=== PATIENT | female | born 1990 | race Two or more races ===

== ENCOUNTER → 2018-09-05 | Day surgery (SDC) | payer MEDICAID ==
[~2018-09-05] VITALS: Ht 165.1 cm; Wt 57.2 kg
[~2018-09-05] MED LIST: DEXAMETHASONE SOD PHOS 10MG/1ML VIAL INJ ONE; GLYCOPYRROLATE 0.2 MG/ML 1ML VIAL ONE; HYDR-4683 PO; HYDROmorphone HCL 2 MG/ML VL IV PRN; KETOROLAC TROMETH 30 MG/ML 1ML VIAL IV ONE; KETOROLAC TROMETH 30 MG/ML 1ML VIAL ONE; LABETALOL HCL 5 MG/ML 4ML SYRINGE IV PRN; LACTATED RINGER'S 1,000 ML IV SCH; MEPERIDINE HCL (50 MG/ML) 1 ML VIAL ONE; MIDAZOLAM HCL 1MG/1ML-2 ML VIAL IV PRN; MIDAZOLAM HCL 1MG/1ML-2 ML VIAL ONE; MORPHINE SULFATE 4 MG/ML SYR/VIAL IV ONE; MORPHINE SULFATE 4 MG/ML SYR/VIAL IV PRN; NAP500T PO; NEOSTIGMINE 1 MG/ML INJ (10mg/10ML VIAL) ONE; ONDANSETRON HCL 4 MG/2 ML VIAL IV ONE; ONDANSETRON HCL 4 MG/2 ML VIAL IV PRN; ONDANSETRON HCL 4 MG/2 ML VIAL ONE; PHENYLEPHRINE HCL 10 MG/ML VL ONE; PROPOFOL 10 MG/ML 20 ML IV ONE; ROCURONIUM 10MG/ML 10ML VIAL IV ONE; ceFAZolin 1GM/50ML 50 ML IV ONE; ePHEDrine SULFATE 50 MG/ML AMP IV PRN; fentaNYL CITRATE 100 MCG/2 ML VL ONE
[2018-09-05 11:59] VITALS: BP 113/113
== END | disposition home or self-care (01) ==
LOC: SUR 07:00
PROVIDERS: ATTEND Specialist
DX: N83.292 Other ovarian cyst, left side (principal); L91.8 Other hypertrophic disorders of the skin; N83.9 Noninflammatory disorder of ovary, fallopian tube and broad ligament, unspecified; Z79.899 Other long term (current) drug therapy; Z98.890 Other specified postprocedural states
CPT/HCPCS: 11200; 58661; J1170; J2175; J2370; J3010; 86850; 86900; 86901; 87070; 87075; 87205; J0690; J1100; J1885; J2250; J2405; J2704

== ENCOUNTER 2018-09-08 09:58 | Inpatient (IN) | payer MEDICAID ==
[~2018-09-08] VITALS: Ht 165.1 cm; Wt 57.2 kg
[~2018-09-08 09:58] MED LIST changes: -DEXAMETHASONE SOD PHOS 10MG/1ML VIAL INJ ONE; -GLYCOPYRROLATE 0.2 MG/ML 1ML VIAL ONE; -HYDROmorphone HCL 2 MG/ML VL IV PRN; -KETOROLAC TROMETH 30 MG/ML 1ML VIAL IV ONE; -KETOROLAC TROMETH 30 MG/ML 1ML VIAL ONE; -LABETALOL HCL 5 MG/ML 4ML SYRINGE IV PRN; -LACTATED RINGER'S 1,000 ML IV SCH; -MEPERIDINE HCL (50 MG/ML) 1 ML VIAL ONE; -MIDAZOLAM HCL 1MG/1ML-2 ML VIAL IV PRN; -MIDAZOLAM HCL 1MG/1ML-2 ML VIAL ONE; -MORPHINE SULFATE 4 MG/ML SYR/VIAL IV ONE; -MORPHINE SULFATE 4 MG/ML SYR/VIAL IV PRN; -NEOSTIGMINE 1 MG/ML INJ (10mg/10ML VIAL) ONE; -ONDANSETRON HCL 4 MG/2 ML VIAL IV ONE; -ONDANSETRON HCL 4 MG/2 ML VIAL IV PRN; -ONDANSETRON HCL 4 MG/2 ML VIAL ONE; -PHENYLEPHRINE HCL 10 MG/ML VL ONE; -PROPOFOL 10 MG/ML 20 ML IV ONE; -ROCURONIUM 10MG/ML 10ML VIAL IV ONE; -ceFAZolin 1GM/50ML 50 ML IV ONE; -ePHEDrine SULFATE 50 MG/ML AMP IV PRN; -fentaNYL CITRATE 100 MCG/2 ML VL ONE
[2018-09-08] MEDS ORDERED: IOHEXOL 350 MG/ML 100ML IJ ONE ×2 (10:58→12:31)
[2018-09-08 11:35] LABS: Basophils # (auto) 0 uL; Basophils % (auto) 0.2 % (0.0-2.0); Eosinophils # (auto) 0.1 uL; Eosinophils % (auto) 1.4 % (0.0-7.0); Hematocrit 44.6 % (36.0-46.0); Hemoglobin 15.2 g/dL (12.2-16.2); Lymphocytes # (auto) 1.2 uL; Lymphocytes % (auto) 13.2 % (10.0-50.0); Mean Corpuscular Hemoglobin 31.3 pg (28.0-32.0); Mean Corpuscular Volume 92.1 fL (80.0-100.0); Monocytes # (auto) 0.7 uL; Monocytes % (auto) 7.2 % (0.0-12.0); Neutrophils # (auto) 7.3 uL; Platelet Count (auto) 245 10^3/uL (140-450); Red Blood Cells 4.84 10^6/uL (4.0-5.20); Red Cell Distribution Width 12.7 % (11.8-14.3); White Blood Cell 9.4 10^3/uL (4.4-10.8)
[2018-09-08 13:59] LABS: Alanine Aminotransferase 81 U/L (13-56); Alkaline Phosphatase 62 U/L (45-117); Anion Gap 11 (5-15); Aspartate Aminotransferase 40 U/L (15-37); BUN/Creatinine Ratio 25.9; Blood Urea Nitrogen 14 mg/dL (7-18); Carbon Dioxide 19 mmol/L (21-32); Chloride 103 mmol/L (98-107); GFR African American 177 mL/min; GFR Non-African American 146 mL/min; Glucose 84 mg/dL (74-106); Potassium 3.7 mmol/L (3.5-5.1); Sodium 133 mmol/L (136-145)
[2018-09-08 14:00] LABS: Albumin 3.8 g/dL (3.4-5.0); Bilirubin, Total 0.4 mg/dL (0.2-1.0); Calcium 8.9 mg/dL (8.5-10.1); Magnesium 2.3 mg/dL (1.6-2.6); Total Protein 8.4 g/dL (6.4-8.2)
[2018-09-08] MEDS ORDERED: diphenhdrAMINE HCL 50 MG/1 ML VL ONE (14:30)
[2018-09-08] MEDS ORDERED: diphenhdrAMINE HCL 50 MG/1 ML VL IV ONE (14:30)
[2018-09-08] MEDS ORDERED: DOCUSATE SOD 100 MG CAP PO PRN (17:15)
[2018-09-08] MEDS ORDERED: ALPRAZolam 0.25 MG TAB PO PRN (17:15)
[2018-09-08] MEDS ORDERED: ONDANSETRON HCL 4 MG/2 ML VIAL IV PRN (17:15)
[2018-09-08] MEDS ORDERED: IPRATROPIUM BROM 0.5 MG/2.5ML INH SOL NEB PRN (17:15)
[2018-09-08] MEDS ORDERED: traMADol HCL 50 MG TAB PO PRN (17:15)
[2018-09-08] MEDS: SODIUM CHLORIDE 0.9% 1,000 ML IV SCH (18:12)
[2018-09-08 18:52] VITALS: BP 106/72
--- NOTE | 2018-09-08 21:15 | NUR ---
MS admit from ER ERNESTO MENJIVAR admitted to tele/MS after SBAR received. Patient oriented to Annbaelle Collier, primary RN, unit, room, bed, and unit policies regarding patient care and visiting hours. Patient weighed by bedscale and encouraged to call if they need something. All questions and concerns addressed, patient verbalized understanding. Note:
[2018-09-08 22:00] VITALS: BP 103/61
--- NOTE | 2018-09-08 23:00 | NUR ---
Respiratory note: PT SEEN AND ASSESSED FOR PRN MED NEB TX AT 2300. TX NOT INDICATED AT THIS TIME. PT DISPLAYING NO SIGNS OF DISTRESS. BREATH SOUNDS WERE CLEAR AND DIMINISHED BILATERALLY. HR 71 RR 18 POX 100% ON ROOM AIR. PT AWARE TO CALL FOR RT IF ANY DISTRESS OCCURS THROUGHOUT THE NIGHT.
[2018-09-09] MEDS: SODIUM CHLORIDE 0.9% 1,000 ML IV SCH ×2 (03:15→16:07)
[2018-09-09 05:00] VITALS: BP 93/57
[2018-09-09 06:57] LABS: Basophils # (auto) 0 uL; Basophils % (auto) 0.3 % (0.0-2.0); Eosinophils # (auto) 0.3 uL; Eosinophils % (auto) 3.5 % (0.0-7.0); Hematocrit 37.8 % (36.0-46.0); Hemoglobin 12.7 g/dL (12.2-16.2); Lymphocytes # (auto) 1.5 uL; Lymphocytes % (auto) 17.3 % (10.0-50.0); Mean Corpuscular Hemoglobin 30.8 pg (28.0-32.0); Mean Corpuscular Hgb Conc. 33.7 g/dL (32.0-36.0); Mean Corpuscular Volume 91.3 fL (80.0-100.0); Monocytes # (auto) 0.8 uL; Monocytes % (auto) 8.8 % (0.0-12.0); Neutrophils % (auto) 70.1 % (37.0-80.0); Platelet Count (auto) 230 10^3/uL (140-450); Red Blood Cells 4.14 10^6/uL (4.0-5.20); Red Cell Distribution Width 12.6 % (11.8-14.3); White Blood Cell 8.6 10^3/uL (4.4-10.8)
[2018-09-09 07:11] LABS: Calcium 8.2 mg/dL (8.5-10.1); Potassium 3.8 mmol/L (3.5-5.1)
[2018-09-09 07:14] LABS: BUN/Creatinine Ratio 26.4
--- NOTE | 2018-09-09 07:49 | NUR ---
Assumed care of pt, awake and alert, no s&s of distress/sob or pain noted, instructed on poc and to call for assist prn, will continue to monitor for changes q1h and prn.
[2018-09-09 09:00] VITALS: BP 98/66
--- NOTE | 2018-09-09 12:30 | NUR ---
Pt awake and alert, no s&s of distress/sob or pain noted, will continue to monitor for changes q1h and prn.
[2018-09-09 13:00] VITALS: BP 99/55
--- NOTE | 2018-09-09 13:17 | NUR ---
Respiratory note: PT ASSESSED FOR PRN MED NEB TX, NO TX DESIRED NOR INDICATED. HR 88 RR 16 SPO2 99% ON RA BREATH SOUNDS ARE CLEAR T/O. PT AND RN AWARE TO HAVE RT PAGED IF NEEDED.
--- NOTE | 2018-09-09 15:45 | NUR ---
Dr. Toussaint in to see pt and he reports it is ok for pt to go home.
--- NOTE | 2018-09-09 15:46 | NUR ---
Pt awake and alert, no s&s of distress/sob or pain noted, will continue to monitor for changes q1h and prn. Addendum: 09/09/18 at 1719 by Richi Laurent RN Pt reported she had a bm today, recently.
--- NOTE | 2018-09-09 16:02 | NUR ---
[facility] FAXED HH ORDER.
--- NOTE | 2018-09-09 16:05 | NUR ---
S/w Dr. Espinal re clearance for discharge, orders received.
[2018-09-09 17:26] VITALS: BP 103/65
== END 2018-09-09 17:20 | disposition home health service (06) | DRG 203 ==
LOC: ER 09:58 → OVERFLOW 17:13 → EAST 21:10
PROVIDERS: ADMIT Nurse Practitioner Acute Care; ATTEND Internal Medicine
DX: R07.89 Other chest pain (principal); K59.00 Constipation, unspecified; N80.9 Endometriosis, unspecified; Z90.721 Acquired absence of ovaries, unilateral
CPT/HCPCS: 36415; 71046; 71275; 74176; 80048; 80053; 83735; 83880; 84484; 85025; 87081; 93005; 94761; 96374; G0378

== ENCOUNTER 2024-06-22 18:09 | Emergency (ER) | payer MEDICAID ==
[~2024-06-22] VITALS: Ht 165.1 cm; Wt 67.5 kg
[~2024-06-22 18:09] MED LIST changes: -HYDR-4683 PO; +HYDR-4833 PO
--- NOTE | 2024-06-22 18:58 | ED.PDOC ---
History of Present Illness HPI Comments 33 y/o F, with a Hx of ovarian cysts and left oophorectomy, presents with c/o abnormal vaginal bleeding, non-radiating, lower-abdominal cramping, dizziness, and generalized weakness, today. Patient endorses on having symptoms for the past 15 days that began, initially, with onset of her regular menstrual period. She state on symptoms worsening within the past 3-4 days and going through 5-6x pads/day, now. She reports no recent sexual activity for the past year and is not on control, currently. She denies having any nausea, vomiting, diarrhea, urinary symptoms, shortness of breath, or other associated symptoms or modifiers at this time. Chief Complaint: Vaginal Bleed Time Seen by MD: 18:56 Primary Care Provider: NONE Reviewed Notes: Nurses Notes, Medications, Allergies Allergies: Coded Allergies: NO KNOWN ALLERGIES (Unverified , 09/02/18) Home Meds Reported Medications Hydrocodone-Acetaminophen ([place] 5/325MG) 1 Tab Tb, 1 TAB PO BID PRN for MODERATE PAIN, #60 TAB 09/02/18 Naproxen (NAPROSYN TABLET) 500 Mg Tb, 1 TAB PO BID PRN for MODERATE PAIN, #60 TAB 1 Refill 09/02/18 Information Source: Patient Mode of Arrival: Ambulatory Severity: Moderate Timing: Days Duration: Since onset Prehospital treatment: None Past Medical History PAST MEDICAL HISTORY: Denies Surgical History: Denies all surgeries [employer]PERATOR History: Ovarian Cysts, Other (left oophorectomy) Family History Family History: Unknown Social History Smoker: Non-Smoker Alcohol: Denies ETOH Use Drugs: Denies Drug Use Lives In: Home Gastrointestinal: reports: abdominal pain Genitourinary: reports: abnormal vagina bleeding Neurological: reports: dizziness, weakness All Other Systems: Reviewed and Negative (negative unless otherwise stated above or in HPI) Physical Exam General Appearance: No Apparent Distress, Normal HEENT: Normal ENT Inspection, Pharynx Normal, TMs Normal Neck: Full Range of Motion, Non-Tender, Normal, Normal Inspection Respiratory: Chest Non-Tender, Lungs Clear, No Accessory Muscle Use, No Respiratory Distress, Normal Breath Sounds Cardiovascular: No Edema, No JVD, No Murmur, No Gallop, Normal Peripheral Pulses, Regular Rate/Rhythm Breast Exam: Deferred Gastrointestinal: No Organomegaly, Non Tender, No Pulsatile Mass, Normal Bowel Sounds, Soft Genitalia: Deferred Pelvic: Other (tender, no bloating or swelling) Rectal: Deferred Extremities: No calf tenderness, Normal capillary refill, Normal inspection, Normal range of motion, Non-tender, No pedal edema Musculoskeletal : Apperance: Normal Neurologic: Alert, bolt cutter II-XII nml as Tested, No Motor Deficits, Normal Affect, Normal Mood, No Sensory Deficits Cerebellar Function: Normal Reflexes: Normal Skin: Dry, Normal Color, Warm Lymphatic: No Adenopathy Was a procedure done? Was a procedure done?: No Differential Dx Considerations may include: menorrhagia, dysmenorrhea, menstrual period, vaginitis X-Ray, Labs, Meds, VS Vital Signs Date Time Temp Pulse Resp B/P (MAP) Pulse Ox O2 Delivery O2 Flow Rate FiO2 06/22/24 18:23 97.9 76 18 132/83 (99) 99 Lab Test 06/22/24 20:27 06/22/24 18:35 Range/Units Urine Color Light-yellow Yellow Urine Clarity Clear Clear Urine pH 6.0 5.0-9.0 Urine Specific [place] 1.011 1.001-1.035 Urine Protein Negative Negative Urine Ketones Negative Negative Urine Blood 2+ H Negative /uL Urine Nitrite Negative Negative Urine Bilirubin Negative Negative Urine Urobilinogen Normal Negative mg/dL Urine Leukocyte Esterase Negative Negative /uL Urine RBC 5 0 - 4 /hpf Urine WBC 1 0 - 5 /hpf Urine Squamous Epithelial Cells Few <5 /hpf Urine Bacteria None seen None Seen /hpf Urine Glucose Normal Normal mg/dL White Blood Count 9.1 4.4-10.8 10^3/uL Red Blood Count 4.44 4.0-5.20 10^6/uL Hemoglobin 13.8 12.2-16.2 g/dL Hematocrit 40.6 36.0-46.0 % Mean Corpuscular Volume 91.5 80.0-100.0 fL Mean Corpuscular Hemoglobin 31.1 28.0-32.0 pg Mean Corpuscular Hemoglobin Concent 34.0 32.0-36.0 g/dL Red Cell Distribution Width 13.3 11.8-14.3 % Platelet Count 285 140-450 10^3/uL Mean Platelet Volume 8.9 6.9-10.8 fL Neutrophils (%) (Auto) 58.5 37.0-80.0 % Lymphocytes (%) (Auto) 32.1 10.0-50.0 % Monocytes (%) (Auto) 5.6 0.0-12.0 % Eosinophils (%) (Auto) 3.2 0.0-7.0 % Basophils (%) (Auto) 0.6 0.0-2.0 % Neutrophils # (Auto) 5.3 1.6-8.6 10 ^3/uL Lymphocytes # (Auto) 2.9 0.4-5.4 10 ^3/uL Monocytes # (Auto) 0.5 0-1.3 10 ^3/uL Eosinophils # (Auto) 0.3 0-0.8 10 ^3/uL Basophils # (Auto) 0.1 0-0.2 10 ^3/uL Nucleated Red Blood Cells 0.1 % Sodium Level 139 136-145 mmol/L Potassium Level 3.7 3.5-5.1 mmol/L Chloride Level 106 98-107 mmol/L Carbon Dioxide Level 25 20-31 mmol/L Anion Gap 8 5-15 Blood Urea Nitrogen 14 9-23 mg/dL Creatinine 0.74 0.550-1.02 mg/dL Glomerular Filtration Rate Calc 111 >90 mL/min BUN/Creatinine Ratio 18.9 10.0-20.0 Serum Glucose 97 74-106 mg/dL Calcium Level 9.6 8.7-10.4 mg/dL Total Bilirubin 0.3 0.2-1.0 mg/dL Aspartate Amino Transferase (AST) 17 13-40 U/L Alanine Aminotransferase (ALT) 27 7-40 U/L Alkaline Phosphatase 79 46-116 U/L Total Protein 7.7 5.7-8.2 g/dL Albumin 4.6 3.2-4.8 g/dL X-Ray, Labs, Meds, VS Comment Imaging: X-rays and CT scans were reviewed and interpreted by this provider, imaging shows no fractures and no pathological disease. Pending radiology review. Laboratory: Labs reviewed and interpreted by this provider. No significant abnormalities noted. Patient has prior medical visits reviewed. Med reconciliation performed Vital signs reviewed Time of 1ST Reevaluation: 19:26 Reevaluation 1ST: Unchanged Patient Education/Counseling: Diagnosis, Treatment, Need For Follow Up (Follow up with PCP in the next 3-5 days. Return to emergency department in the next 24-48 hours if symptoms worsen.) Family Education/Counseling: No Family Present Departure 1 Departure Time of Disposition: 21:15 Impression: Primary Impression: Dysmenorrhea Disposition: HOME / SELF CARE / HOMELESS Condition: Fair e-Prescriptions Medroxyprogesterone Acetate (PROVERA) 5 Mg Tab 1 TAB PO DAILY, #10 TAB 11 Refills Prov: JAVY FOREMAN 06/22/24 Discharged With: Self Critical Care Note Critical Care Time?: No Stability Stability form required: No Heart Score Heart Score: Heart Score Response (Comments) Value History N/A 0 EKG N/A 0 Age N/A 0 Risk Factors N/A 0 Troponin N/A 0 Total 0 I personally scribed for JAVY FOREMAN ([email or web address]) on 06/22/24 at 18:58. Electronically submitted by Willem Carpenter ([email or web address]). JAVY FOREMAN Jun 22, 2024 18:58
[2024-06-22 19:04] LABS: Basophils # (auto) 0.1 10 ^3/uL (0-0.2); Basophils % (auto) 0.6 % (0.0-2.0); Eosinophils # (auto) 0.3 10 ^3/uL (0-0.8); Eosinophils % (auto) 3.2 % (0.0-7.0); Hematocrit 40.6 % (36.0-46.0); Hemoglobin 13.8 g/dL (12.2-16.2); Lymphocytes # (auto) 2.9 10 ^3/uL (0.4-5.4); Lymphocytes % (auto) 32.1 % (10.0-50.0); Mean Corpuscular Hemoglobin 31.1 pg (28.0-32.0); Mean Corpuscular Volume 91.5 fL (80.0-100.0); Monocytes # (auto) 0.5 10 ^3/uL (0-1.3); Monocytes % (auto) 5.6 % (0.0-12.0); Neutrophils # (auto) 5.3 10 ^3/uL (1.6-8.6); Neutrophils % (auto) 58.5 % (37.0-80.0); Nucleated Red Blood Cells % 0.1 %; Platelet Count (auto) 285 10^3/uL (140-450); Red Blood Cells 4.44 10^6/uL (4.0-5.20); Red Cell Distribution Width 13.3 % (11.8-14.3); White Blood Cell 9.1 10^3/uL (4.4-10.8)
[2024-06-22 19:07] LABS: Alanine Aminotransferase 27 U/L (7-40); Albumin 4.6 g/dL (3.2-4.8); Alkaline Phosphatase 79 U/L (46-116); Anion Gap 8 (5-15); Aspartate Aminotransferase 17 U/L (13-40); BUN/Creatinine Ratio 18.9 (10.0-20.0); Blood Urea Nitrogen 14 mg/dL (9-23); Calcium 9.6 mg/dL (8.7-10.4); Carbon Dioxide 25 mmol/L (20-31); Chloride 106 mmol/L (98-107); Glucose 97 mg/dL (74-106); Potassium 3.7 mmol/L (3.5-5.1); Sodium 139 mmol/L (136-145)
[2024-06-22 19:08] LABS: Total Protein 7.7 g/dL (5.7-8.2)
[2024-06-22 19:14] LABS: Bilirubin, Total 0.3 mg/dL (0.2-1.0)
--- NOTE | 2024-06-22 20:27 | DVH ---
TRANSABDOMINAL AND TRANSVAGINAL PELVIC ULTRASOUND CLINICAL HISTORY: vag bleed for 15 days TECHNIQUE: Multiple grayscale ultrasound images were obtained of the pelvis via transabdominal and tr ansvaginal approach. Limited color Doppler and spectral Doppler acquisitions were also obtained. COMPARISON: None FINDINGS: Uterus: 9.1 x 5.2 x 3.9 cm. The uterine contour is smooth. There is a fibroid in the right uterine fu ndus measuring 3.2 x 3.3 x 3.7 cm There are cervical nabothian cysts. Endometrium: 0.7 cm. No endometrial mass is seen. Right adnexa: right ovary 3.7 x 3.3 x 2.2 cm. Normal arterial blood flow in the ovary. No right adnex al mass seen. Left adnexa: left ovary is surgically absent. No left adnexal mass seen. Other: None IMPRESSION: 1. Fibroid uterus. 2. Left ovary surgically absent. 3. Normal right ovary and normal endometrium.
[2024-06-22 20:29] LABS: Urine Bacteria None Seen /hpf (None Seen)
[2024-06-22 20:46] LABS: Urine Blood 2+ /uL (Negative); Urine Clarity Clear (Clear); Urine Color Light-Yellow (Yellow); Urine Protein, UAD Negative (Negative); Urine Specific Gravity 1.011 (1.001-1.035); Urine Urobilinogen Normal (Negative); Urine WBC 1 /hpf (0 - 5)
[2024-06-22] MEDS ORDERED: MEDR5TAB28 PO (21:16)
[2024-06-22 21:42] VITALS: BP 107/48; PULSE 65; RESP 18; TEMP 98.7; O2SAT 100
== END 2024-06-22 21:48 | disposition home or self-care (01) ==
LOC: ER 18:24
DX: N94.6 Dysmenorrhea, unspecified (principal); R42 Dizziness and giddiness; Z90.721 Acquired absence of ovaries, unilateral; Z79.899 Other long term (current) drug therapy
CPT/HCPCS: 36415; 76830; 76856; 80053; 81001; 85025; 86850; 86900; 86901